=== PATIENT | female | born 1990 | race Caucasian/White ===

== ENCOUNTER 2024-09-23 14:05 | Emergency (ER) | payer SELFPAY | END 2024-09-23 17:30 | disposition home or self-care (01) | LOC: ERS 14:05 | DX: B34.9 Viral infection, unspecified (principal); J02.8 Acute pharyngitis due to other specified organisms; B96.89 Other specified bacterial agents as the cause of diseases classified elsewhere | CPT/HCPCS: 87081; 87428; 87430; 99283 ==